=== PATIENT | male | born 1975 | race Two or more races ===

== ENCOUNTER 2022-05-22 01:55 | Emergency (ER) | payer MEDICAID, OTHER ==
[~2022-05-22] VITALS: Ht 172.7 cm; Wt 118.0 kg
[2022-05-22 06:07] VITALS: BP 127/76
[2022-05-22] MEDS ORDERED: ACETAMINOPHEN 500 MG TAB PO ONE (07:00)
[2022-05-22] MEDS ORDERED: IBUP800T27 PO (07:20)
[2022-05-22] MEDS ORDERED: METH750T22 PO (07:20)
== END 2022-05-22 07:33 | disposition home or self-care (01) ==
LOC: ER 01:55
DX: S16.1XXA Strain of muscle, fascia and tendon at neck level, initial encounter (principal); S39.012A Strain of muscle, fascia and tendon of lower back, initial encounter; E11.9 Type 2 diabetes mellitus without complications; V43.52XA Car driver injured in collision with other type car in traffic accident, initial encounter; Y93.89 Activity, other specified; Y92.410 Unspecified street and highway as the place of occurrence of the external cause; Y99.8 Other external cause status
CPT/HCPCS: 72040; 72070